=== PATIENT | male | born 1955 | race Caucasian/White ===

== ENCOUNTER → 2016-04-24 | Outpatient (CLI) | payer OTHER ==
[~2016-04-24] MED LIST: ASPIRIN EC81 M1 PO; FLOMAX0.4 M1 PO; FLUOXETINE HCL20 M1 PO; LISINOPRIL; NORVASC10 MG PO; PRAVASTATIN SOD40 MG PO; PRINIVIL20 M1 PO; SYMBICORT INH; TENORMIN25 M1 PO
--- NOTE | ~2016-04-24 | CT55 ---
[facility] A Service of [facility] & [facility] RADIOLOGY TEXT RESULTS PATIENT: SHRAVAN PERRY JR LOCATION: [facility] : 51 UNIT #: [id number] AGE: [address]: Carmenza Zimmer MD SEX: M ORDER DR: [id number] [facility] [address] [place], [place] [address] [id number] O MR#: [id number] [facility] #: [id number] NAME: SHRAVAN PERRY : 1955 SEX: M STUDY DATE/TIME: 04/24/2016 8:00 UNIT: [facility] ROOM: STUDY DESCRIPTION: CT Chest W Con Attending Physician: Carmenza Zimmer M.D., Ph.D. Ordering Physician: Carmenza Zimmer M.D., Ph.D. Primary Care Physician: No Primary Care Physician MEDICAL IMAGING REPORT This report is preliminary unless electronic signature is present EXAM CT chest with contrast HISTORY 61-year-old male follow up lung cancer. Patient completed radiation therapy in 2016. Surveillance for recurrent disease. COMPARISON CT chest 12/26/2015 primary malignancy right upper lobe. TECHNIQUE This CT exam was performed with one or more of the following radiation dose reduction techniques: automatic control, adjustment of mA and/or kV according to patient size, and iterative reconstruction. FINDINGS Axial images performed through the chest following IV contrast. Multiplanar reconstructed images reviewed at a workstation. Examination demonstrates persistent parenchymal opacity right upper lobe and pleural thickening along the anterior aspect of the right upper lobe corresponding to site of the patient's primary tumor and radiation therapy. There is no appreciable change in the patient's right upper lobe parenchymal opacity measuring a maximum of 1.2 cm. Focal reticulation and scarring noted at the site of radiation treatment. Stable pleural thickening. No definite new mass identified. Background parenchyma demonstrates moderate to severe centrilobular emphysema. No effusions. No significant mediastinal or hilar lymphadenopathy. Heart size within normal limits. Aorta and pulmonary vessels unremarkable. Small amount of intravenous area seen in the anterior main pulmonary artery probably related to IV contrast administration but felt to be of no clinical significance. Visualized upper abdomen unremarkable. The adrenal glands appear normal. Osseous structures and thoracic inlet appear normal. [facility] A Service of [facility] & [facility] RADIOLOGY TEXT RESULTS PATIENT: SHRAVAN PERRY JR [id number] : [birth year] UNIT #: [id number] AGE: [address]: Carmenza Zimmer MD SEX: M ORDER DR: IMPRESSION 1. Residual parenchymal opacity volume loss right upper lobe consistent with the patient's history of right upper lobe malignancy and radiation therapy. No interval progression of disease. 2. Moderate background centrilobular emphysema. Dictated by... Kayleigh Suero M.D. THIS IS AN ELECTRONICALLY VERIFIED REPORT Kayleigh Suero M.D. at 04/24/2016 4:54 PM MAICO/guzmanr TD: 04/24/2016 13:39 JOB #: [id number] MEDICAL IMAGING REPORT COPY
[2016-04-25 09:27] LABS: POC - CREATININE 1.3 mg/dL (0.64-1.27)
== END | disposition home or self-care (01) ==
LOC: CCAT 06:41
PROVIDERS: Internal Medicine Hematology & Oncology
DX: C34.90 Malignant neoplasm of unspecified part of unspecified bronchus or lung (principal); J43.2 Centrilobular emphysema; R91.8 Other nonspecific abnormal finding of lung field
CPT/HCPCS: 71260; 82565; Q9967

== ENCOUNTER → 2016-05-30 | Outpatient (CLI) | payer OTHER ==
--- NOTE | ~2016-05-30 | US37 ---
[facility] A Service of [facility] & [facility] RADIOLOGY TEXT RESULTS PATIENT: SHRAVAN PERRY JR LOCATION: [facility] : 53 UNIT #: [id number] AGE: [address]: Toby Wise MD SEX: M ORDER DR: [id number] [facility] [address] [place], [place] [address] [id number] O MR#: [id number] Acc #: [id number] NAME: SHRAVAN PERRY : 1955 SEX: M STUDY DATE/TIME: 05/30/2016 8:23 UNIT: [facility] ROOM: STUDY DESCRIPTION: US Carotid W/Doppler Bilateral Attending Physician: Toby Wise M.D. Referring Physician: Toby Wise M.D. Ordering Physician: Toby Wise M.D. Primary Care Physician: Yoseph Moy M.D. MEDICAL IMAGING REPORT This report is preliminary unless electronic signature is present EXAM Bilateral carotid duplex CLINICAL HISTORY Carotid stenosis. CLINICAL FINDINGS There is patent flow seen throughout the right common carotid, internal carotid, and external carotid arteries. There is a mild, diffuse, homogeneous-appearing plaque seen in the right common carotid artery. At the right carotid bifurcation, there is some heterogeneous, irregular-appearing, and echogenic plaque. This plaque extends into the external carotid as well as internal carotid artery. The right common carotid artery peak velocity is 72 cm/sec. The right internal carotid artery peak systolic over end diastolic velocities are: Proximal 63/18 cm/sec, mid 80/30 cm/sec, distal 76/32 cm/sec. The right external carotid artery has a peak velocity of 175 cm/sec, and vertebral artery 36 cm/sec. The right ICA/CCA ratio is 1.1. There is patent flow seen throughout the left common carotid, internal carotid, and external carotid arteries. There is some diffuse, irregular-appearing homogeneous plaque seen in the left common carotid artery, extending into the carotid bifurcation. The carotid bifurcation appears more heterogeneous and irregular. This also extends into the external carotid artery and internal carotid artery. The left common carotid artery peak velocity is 75 cm/sec. The left internal carotid artery peak systolic/end diastolic velocities are: Proximal 85/26 cm/sec, mid 70/25 cm/sec, distal 51/19 cm/sec. The left external carotid artery peak velocity is 135 cm/sec, vertebral artery 62 cm/sec. The left ICA/CCA ratio is 1.1. IMPRESSION [facility] A Service of [facility] & [facility] RADIOLOGY TEXT RESULTS PATIENT: SHRAVAN PERRY JR LOCATION: [facility] : 51 UNIT #: [id number] AGE: [address]: Toby Wise MD SEX: M ORDER DR: 1. The right carotid artery has mild atherosclerosis, which is not hemodynamically significant by duplex criteria (less than 50%). 2. The left carotid artery has mild atherosclerosis which is not hemodynamically significant by duplex criteria (less than 50%). 3. Vertebral flows antegrade bilaterally. Dictated by... Glynn Chinchilla M.D. THIS IS AN ELECTRONICALLY VERIFIED REPORT Glynn Chinchilla M.D. at 05/31/2016 8:29 AM Buffy TD: 05/30/2016 11:51 JOB #: [id number] MEDICAL IMAGING REPORT Page 1 of 1 COPY
== END | disposition home or self-care (01) ==
LOC: CNIV 07:57
DX: I65.09 Occlusion and stenosis of unspecified vertebral artery (principal); I65.23 Occlusion and stenosis of bilateral carotid arteries
CPT/HCPCS: 93880

== ENCOUNTER → 2016-10-29 | Outpatient (CLI) | payer OTHER ==
--- NOTE | ~2016-10-29 | CT57 ---
[facility] A Service of [facility] & [facility] RADIOLOGY TEXT RESULTS PATIENT: SHRAVAN PERRY JR LOCATION: [facility] : 51 UNIT #: [id number] AGE: [address]: Carmenza Zimmer MD SEX: M ORDER DR: [id number] [facility] [address] [place], [place] [address] [id number] O MR#: [id number] [facility] #: [id number] NAME: SHRAVAN PERRY : 1955 SEX: M STUDY DATE/TIME: 10/29/2016 8:48 [facility]: ST[facility]Y DESCRIPTION: CT Chest Wo Cont Attending Physician: Carmenza Zimmer M.D., Ph.D. Referring Physician: Carmenza Zimmer M.D., Ph.D. Ordering Physician: Carmenaz Zimmer M.D., Ph.D. Primary Care Physician: Yoseph Moy M.D. MEDICAL IMAGING REPORT This report is preliminary unless electronic signature is present EXAM CT chest. INDICATIONS Right upper lobe pulmonary malignancy. Restaging. Observation for metastatic disease. TECHNIQUE CT of the chest without contrast. Coronal and sagittal reconstructions were obtained. This CT exam was performed with one or more of the following radiation dose reduction techniques: automatic exposure control, adjustment of mA and/or kV according to patient size, and iterative reconstruction. COMPARISON CT chest 04/24/2016 and 12/26/2015. FINDINGS There has been interval progression of the right perihilar mass in the right upper lobe. The soft tissue measures 3.3 x 2.5 cm, compared to 1.2 x 1.6 cm previously. There is now cutoff of a interior right upper lobe pulmonary bronchus. There is increased consolidation and/or volume loss in the right upper lobe. The mass extends into the right hilar region, however, no additional enlarged right hilar or mediastinal lymphadenopathy is identified. There is no enlarged left hilar adenopathy. Minimal tree-in-bud nodularity in the lateral aspect the left lower lobe is unchanged from the prior study. No new pulmonary opacities. Limited images of the upper abdomen were obtained. No adrenal lesions are identified. [facility] A Service of [facility] & [facility] RADIOLOGY TEXT RESULTS PATIENT: SHRAVAN PERRY JR LOCATION: [facility] : 51 UNIT #: [id number] AGE: [address]: Carmenza Zimmer MD SEX: M ORDER DR: No suspicious osseous abnormalities. IMPRESSION 1. Increasing size of the right upper lobe/right hilar mass consistent disease progression. 2. Increased volume loss and/or postobstructive consolidation in the right upper lobe. Dictated by... Rene Sánchez M.D. THIS IS AN ELECTRONICALLY VERIFIED REPORT Rene Sánchez M.D. at 10/30/2016 9:43 AM JANI/armen TD: 10/29/2016 21:15 JOB #: [id number] MEDICAL IMAGING REPORT Page 1 of 1 COPY
[2016-10-29 11:16] LABS: POC - CREATININE 1.69 mg/dL (0.64-1.27)
== END | disposition home or self-care (01) ==
LOC: CCAT 07:34
PROVIDERS: Internal Medicine Hematology & Oncology
DX: C34.90 Malignant neoplasm of unspecified part of unspecified bronchus or lung (principal); R91.8 Other nonspecific abnormal finding of lung field
CPT/HCPCS: 71250; 82565